=== PATIENT | female | born 1950 | race Caucasian/White ===

== ENCOUNTER 2018-03-29 18:20 | Emergency (ER) | payer OTHER ==
[~2018-03-29] VITALS: Ht 149.9 cm; Wt 79.8 kg
[~2018-03-29 18:20] MED LIST: ASPIR 8181 MG PO; CRESTOR10 MG PO; DULERA 100 MCG/13 GM PO; LOPRESSOR50 PO; MOBIC15 MG PO; QUINAPRIL 20 MG20 MG PO; TRAMADOL 50 MG50 MG PO; UNICOMPLEX M TA1 TA1 PO; ZYRTEC10 MG PO
== END 2018-03-29 19:43 | disposition home or self-care (01) ==
LOC: ER 18:20
DX: S00.03XA Contusion of scalp, initial encounter (principal); S00.83XA Contusion of other part of head, initial encounter; Z98.890 Other specified postprocedural states; W20.8XXA Other cause of strike by thrown, projected or falling object, initial encounter; Y92.009 Unspecified place in unspecified non-institutional (private) residence as the place of occurrence of the external cause; Y93.89 Activity, other specified; Y99.8 Other external cause status

== ENCOUNTER → 2019-11-08 | Outpatient (CLI) | payer OTHER | LOC: SJCVC 09:54 | PROVIDERS: ATTEND Internal Medicine | DX: I44.0 Atrioventricular block, first degree (principal); I25.810 Atherosclerosis of coronary artery bypass graft(s) without angina pectoris; I10 Essential (primary) hypertension; E78.5 Hyperlipidemia, unspecified; Z95.1 Presence of aortocoronary bypass graft; Z79.899 Other long term (current) drug therapy; Z79.82 Long term (current) use of aspirin; Z87.891 Personal history of nicotine dependence ==

== ENCOUNTER → 2020-05-11 | Outpatient (CLI) | payer OTHER | LOC: SJCVC 12:15 | PROVIDERS: ATTEND Internal Medicine | DX: R06.00 Dyspnea, unspecified (principal); I25.10 Atherosclerotic heart disease of native coronary artery without angina pectoris; E78.5 Hyperlipidemia, unspecified; I10 Essential (primary) hypertension; Z95.1 Presence of aortocoronary bypass graft; Z79.82 Long term (current) use of aspirin; Z79.899 Other long term (current) drug therapy; Z87.891 Personal history of nicotine dependence ==

== ENCOUNTER → 2020-11-09 | Outpatient (CLI) | payer OTHER | LOC: SJCVC 10:11 | PROVIDERS: ATTEND Internal Medicine | DX: R06.09 Other forms of dyspnea (principal); I25.10 Atherosclerotic heart disease of native coronary artery without angina pectoris; I10 Essential (primary) hypertension; E78.5 Hyperlipidemia, unspecified; Z95.1 Presence of aortocoronary bypass graft; Z98.890 Other specified postprocedural states; Z88.8 Allergy status to other drugs, medicaments and biological substances; Z79.82 Long term (current) use of aspirin; Z79.899 Other long term (current) drug therapy; Z87.891 Personal history of nicotine dependence ==

== ENCOUNTER → 2020-11-24 | Outpatient (CLI) | payer OTHER | LOC: SJCVCIMAG 10:55 | PROVIDERS: ATTEND Internal Medicine | DX: I35.1 Nonrheumatic aortic (valve) insufficiency (principal); R00.0 Tachycardia, unspecified; R05 Cough; M25.512 Pain in left shoulder; R06.00 Dyspnea, unspecified; I25.10 Atherosclerotic heart disease of native coronary artery without angina pectoris; I10 Essential (primary) hypertension; E78.5 Hyperlipidemia, unspecified; Z95.1 Presence of aortocoronary bypass graft; Z79.82 Long term (current) use of aspirin; Z79.899 Other long term (current) drug therapy; Z87.891 Personal history of nicotine dependence ==

== ENCOUNTER → 2020-12-02 | Outpatient (CLI) | payer OTHER | LOC: SJCVC 09:24 | PROVIDERS: ATTEND Internal Medicine | DX: R06.00 Dyspnea, unspecified (principal); I25.10 Atherosclerotic heart disease of native coronary artery without angina pectoris; E78.5 Hyperlipidemia, unspecified; I10 Essential (primary) hypertension; E78.00 Pure hypercholesterolemia, unspecified; Z95.1 Presence of aortocoronary bypass graft; Z88.8 Allergy status to other drugs, medicaments and biological substances; Z98.890 Other specified postprocedural states; Z79.82 Long term (current) use of aspirin; Z79.899 Other long term (current) drug therapy; Z87.891 Personal history of nicotine dependence ==

== ENCOUNTER → 2020-12-10 | Outpatient (CLI) | payer OTHER ==
[~2020-12-10] VITALS: Ht 147.3 cm; Wt 83.5 kg
[~2020-12-10] MED LIST changes: +EFFER-K 10 MEQ10 ME1 PO; +FUROSEMIDE 20 M20 MG PO; +IMDUR 30 MG TAB30 M1 PO; +NITROSTAT0.4 M1 SUBLING
[2020-12-10 09:52] VITALS: BP 142/57
[2020-12-10 10:56] LABS: HEMATOCRIT 45.9 % (37.0-47.0); HEMOGLOBIN 14.9 gm/dL (12.0-15.0); MCH 31.7 pg (26.0-34.0); MCHC 32.6 g/dL (28.0-37.0); MCV 97.3 fL (80.0-100.0); RBC 4.72 mil/uL (4.20-5.00); RDW 14.6 % (10.5-14.5); WBC 8.3 thou/uL (4.0-11.0)
[2020-12-10 11:04] LABS: CALCIUM 8.9 mg/dL (8.5-10.1); CREATININE 0.9 mg/dL (0.6-1.0); POTASSIUM 3.9 mmol/L (3.5-5.1)
--- NOTE | 2020-12-30 16:52 | CATHLAB ---
[facility] [place] [address] [place] [address] INVASIVE PROCEDURE REPORT Name: MICHAEL REYES Room #: REG MARIAN DuránRanjit#: [id number] Admission: 12/10/20 Attend Phys: Segun Armstrong Discharge: Date of : 54 Report #: [id number] THIS REPORT FOR: cc: Claudy Clay MD, Neal A. MD Lammoglia, Francisco J. MD ~ APPROVED REPORT Study performed: 12/10/2020 10:13:17 Patient Details Patient Status: Out-Patient Room #: Event Personnel Segun Armstrong MD, Refrigeration Technician; Suzanne Ch, RTR, Scrub; Shea Parsons, RTR, Monitor; oN Null, RN, RN; Jacqueline Giraldo, BRAYDEN, snow maker Performed Left Heart Cath/Coronaries/SVGS/WOODY; Hemostasis Manual Pressure, supervision of conscious sedation Indication Dyspnea, Unstable angina , Positive stress test, Chest pain Procedure Narrative The right groin was infiltrated with 1% Lidocaine subcutaneous anesthesia. A 4F [place] Sheath sheath was inserted into the RFA. Coronary angiography was performed using coronary diagnostic catheters. The right coronary system was accessed and visualized with a 4F JR4 catheter. The left coronary system was accessed and visualized with a 4F JL4 catheter. The left ventricle was accessed and visualized with a 4F Angled Pigtail catheter. Left ventricular/Aortic Valve gradient assessed via catheter pullback. Hemostasis was obtained with manual pressure following sheath removal without any complications. There was no hematoma. Intraoperative Conscious Sedation Sedation start time: 11:28 Case end Time: 12:02 Versed 2.0 mg Fluoro Time: 6.9 minutes [facility] [address] [place] [address] INVASIVE PROCEDURE REPORT Name: MICHAEL REYES Room #: REG CL [place]#: [id number] Admission: 12/10/20 Attend Phys: Segun Quinn Discharge: Date of : 54 Report #: [id number] Dose: DAP 8174.83 cGycm2 1097 mGy Contrast Type and Amount: Omnipaque 350-60ml Coronary Angiography The patient's coronary anatomy is right dominant. Solomon Artery Percent Stenosis Left Main: % Prox LAD: % Mid/Distal LAD: 0 % Circumflex: 0 % RCA: 0 % Ramus: % Diagnostic Cath Left Main Moderate to large caliber vessel of normal origin that is without high-grade lesion except to the terminal portion where there appears to be an 85 to 990% eccentric lesion. Then continues on giving rise to a LAD and a small marginal branch LAD Proximally occluded via antegrade injection of the LAD fills via CAROLINE graft in the midportion. There is both antegrade and retrograde filling of the vessel itself and diagonal branches. In the middle to distal third there is irregularities of less than 30% noted in the LAD proper. Diagonal 1 Small caliber vessel filling via CAROLINE graft retrograde filling Circumflex Proximally occluded the OM1 is a small caliber vessel that fills via a patent SVG OM1 Small caliber diminutive size vessel without high-grade lesions. Feeling very vein graft as stated above Right Coronary Small caliber vessel of normal origin which is totally occluded in the proximal portion. The distal right coronary fills via SVG anastomosis the posterior descending artery. This retrograde fills the posterior descending and the distal right coronary artery circulation. Is noticed significant high-grade lesions noted beyond the total occlusion previously mentioned. There are some small insignificant caliber posterior wall branches that have been high-grade lesions. These vessels are less than half a millimeter in diameter R PDA Small caliber vessel filling via SVG with luminal irregularities but no high-grade obstructive lesion Left Ventriculography Left Ventriculography was not performed. Hemodynamics The aortic pressure is 161/68 mmHg with a mean of 103 mmHg. The left ventricular pressure is 158/15 mmHg with a mean of mmHg. The left ventricular end diastolic pressure is 32 mmHg. [facility] [address] [place] [address] INVASIVE PROCEDURE REPORT Name: MICHAEL REYES Room #: REG YASMINE [place]#: [id number] Admission: 12/10/20 Attend Phys: Segun Quinn Discharge: Date of : 54 Report #: [id number] Conclusion 1. Coronary disease status post aortocoronary bypass grafting with patent grafts and mild to moderate distal disease 2. Abnormal hemodynamics elevated left ventricle end-diastolic pressure Recommendations Cardiac Risk Reduction Program Medical Therapy <ELECTRONICALLY SIGNED> By: Segun Armstrong MD 12/30/201650 50 50 Segun Armstrong MD /INF
== END | disposition home or self-care (01) ==
LOC: CATH 08:24
PROVIDERS: ATTEND Internal Medicine
DX: R94.39 Abnormal result of other cardiovascular function study (principal); I25.110 Atherosclerotic heart disease of native coronary artery with unstable angina pectoris; R07.9 Chest pain, unspecified; R06.00 Dyspnea, unspecified; I11.0 Hypertensive heart disease with heart failure; I50.9 Heart failure, unspecified; E78.5 Hyperlipidemia, unspecified; I25.2 Old myocardial infarction; E66.9 Obesity, unspecified; K21.9 Gastro-esophageal reflux disease without esophagitis; Z98.890 Other specified postprocedural states; Z79.899 Other long term (current) drug therapy; Z87.891 Personal history of nicotine dependence; Z95.1 Presence of aortocoronary bypass graft; Z88.8 Allergy status to other drugs, medicaments and biological substances

== ENCOUNTER → 2021-01-06 | Outpatient (CLI) | payer OTHER | LOC: SJCVC 13:31 | PROVIDERS: ATTEND Internal Medicine | DX: R94.31 Abnormal electrocardiogram [ECG] [EKG] (principal); I25.10 Atherosclerotic heart disease of native coronary artery without angina pectoris; R06.00 Dyspnea, unspecified; E78.5 Hyperlipidemia, unspecified; I10 Essential (primary) hypertension; M54.9 Dorsalgia, unspecified; I65.29 Occlusion and stenosis of unspecified carotid artery; Z79.82 Long term (current) use of aspirin; Z79.899 Other long term (current) drug therapy; Z88.8 Allergy status to other drugs, medicaments and biological substances; Z72.89 Other problems related to lifestyle; Z87.891 Personal history of nicotine dependence ==

== ENCOUNTER → 2021-05-11 | Outpatient (CLI) | payer OTHER | LOC: SJCVC 09:33 | PROVIDERS: ATTEND Internal Medicine | DX: R94.31 Abnormal electrocardiogram [ECG] [EKG] (principal); I49.3 Ventricular premature depolarization; I25.10 Atherosclerotic heart disease of native coronary artery without angina pectoris; R06.00 Dyspnea, unspecified; E78.5 Hyperlipidemia, unspecified; I10 Essential (primary) hypertension; I65.23 Occlusion and stenosis of bilateral carotid arteries; Z87.891 Personal history of nicotine dependence; Z79.82 Long term (current) use of aspirin; Z79.899 Other long term (current) drug therapy; Z72.89 Other problems related to lifestyle; Z88.8 Allergy status to other drugs, medicaments and biological substances ==